=== PATIENT | female | born 1945 | race Caucasian/White ===

== ENCOUNTER 2024-02-18 14:59 | Outpatient (REF) | payer MEDICARE, SELFPAY ==
[2024-02-18 22:22] LABS: Calculated LDL 78 mg/dL (<100); Cholesterol 195 mg/dL (<200); HDL Cholesterol 109 mg/dL (40-60); TSH (W/Ref FT4) 0.55 uIU/mL (0.36-3.74); Triglyceride 40 mg/dL (<150)
== END 2024-02-18 15:00 | disposition home or self-care (01) ==
LOC: NCHCN 14:59
PROVIDERS: Visit Provider Family Medicine
DX: E03.9 Hypothyroidism, unspecified (principal); Z13.220 Encounter for screening for lipoid disorders
CPT/HCPCS: 80061; 84443